=== PATIENT | female | born 1995 | race Caucasian/White ===

== ENCOUNTER → 2016-04-18 | Outpatient (REF) | payer MEDICAID, OTHER ==
[~2016-04-18] MED LIST: TYLE325T5 PO
[2016-04-18 13:32] LABS: MEAN CORPUSCULAR HEMOGLOBIN 29.2 pg (27.0-33.0); MEAN CORPUSCULAR HGB CONC 34.2 g/dl (32.0-36.5); MEAN CORPUSCULAR VOLUME 85.4 fl (80.0-96.0); RED CELL DISTRIBUTION WIDTH 12.2 % (11.5-14.5); WHITE BLOOD COUNT 6.2 K/mm3 (4.0-10.0)
== END ==
LOC: M SFHCPLAZ 10:14
DX: R00.0 Tachycardia, unspecified (principal)

== ENCOUNTER → 2016-06-02 | Outpatient (REF) | payer OTHER | LOC: M SFHCPLAZ 16:13 | DX: R10.31 Right lower quadrant pain (principal); Z53.8 Procedure and treatment not carried out for other reasons ==

== ENCOUNTER → 2016-06-29 | Outpatient (CLI) | payer MEDICAID, OTHER, SELFPAY ==
[2016-06-29 18:26] LABS: CONTROL LINE HCG INT CTR LINE PRESENT
[2016-06-29 18:37] LABS: ALBUMIN/GLOBULIN RATIO 1.25 (1.00-1.93); ALKALINE PHOSPHATASE 63 U/L (45-117); ALT/SGPT 15 U/L (12-78); AMYLASE 39 U/L (25-115); ANION GAP 8 MEQ/L (8-16); AST/SGOT 14 U/L (15-37); BILIRUBIN,TOTAL 0.2 MG/DL (0.2-1.0); BLOOD UREA NITROGEN 14 MG/DL (7-18); CARBON DIOXIDE LEVEL 29 MEQ/L (21-32); CHLORIDE LEVEL 104 MEQ/L (98-107); CREATININE FOR GFR 0.68 MG/DL (0.55-1.02); GLUCOSE, FASTING 105 MG/DL (70-105); POTASSIUM SERUM 4.3 MEQ/L (3.5-5.1); SODIUM LEVEL 141 MEQ/L (136-145); TOTAL PROTEIN 7.2 GM/DL (6.4-8.2)
== END ==
LOC: M LAB 17:10
PROVIDERS: ATTEND Internal Medicine
DX: R10.31 Right lower quadrant pain (principal)

== ENCOUNTER → 2016-06-29 | Outpatient (REF) | payer OTHER | LOC: M SFHCPLAZ 16:33 | DX: R10.31 Right lower quadrant pain (principal); Z53.9 Procedure and treatment not carried out, unspecified reason ==

== ENCOUNTER → 2016-08-08 | Outpatient (CLI) | payer BC, MEDICAID ==
[~2016-08-08] MED LIST changes: +METHACHOLINE KIT (J7674) INH ONE
--- NOTE | 2016-08-08 14:20 | PFTRPT ---
METHACHOLINE CHALLENGE REPORT: ORDERING PROVIDER: KIESHA Lee DATE OF SERVICE: 08/08/16 INTERPRETATION: The study was of excellent technical quality. Under protocol, methacholine was administered. At a dose of 25 mg/ml (188.875 CDUs) of methacholine, a 21% decline in the FEV1 was noted; however, a PC20 of 17.54 does not meet diagnostic criteria. IMPRESSION: Borderline methacholine challenge study. Please correlate clinically. MTDD
== END ==
LOC: M CARPUL 13:21
PROVIDERS: ATTEND Nurse Practitioner Adult Health
DX: R05 Cough (principal)

== ENCOUNTER → 2016-08-29 | Outpatient (CLI) | payer BC, MEDICAID ==
[~2016-08-29] MED LIST changes: -METHACHOLINE KIT (J7674) INH ONE
--- NOTE | 2016-08-29 15:31 | REP ---
Chest x-ray: Two views. History: Cough . Comparison study: June 16, 2014 . Findings: The lungs are well inflated and free of infiltrate. The pleural angles are sharp. The heart size is normal. Pulmonary vasculature is not increased. No significant bony abnormality is seen. Impression: Negative chest x-ray. Signed by Phil Lyles MD 08/29/2016 03:22 P
== END ==
LOC: M RAD 15:06
PROVIDERS: ATTEND Nurse Practitioner Adult Health
DX: R05 Cough (principal)

== ENCOUNTER → 2016-10-12 | Outpatient (REF) | payer MEDICAID, OTHER | LOC: M SFHCPLAZ 13:41 | DX: Z11.4 Encounter for screening for human immunodeficiency virus [HIV] (principal) ==

== ENCOUNTER → 2017-03-15 | Outpatient (REF) | payer OTHER | LOC: M SFHCPLAZ 12:01 | PROVIDERS: ATTEND Student in an Organized Health Care Education/Training Program | DX: R10.84 Generalized abdominal pain (principal) ==

== ENCOUNTER 2017-09-25 13:26 | Emergency (ER) | payer OTHER, MEDICAID ==
[2017-09-25 14:28] LABS: KETONE, URINE AUTO RFX NEGATIVE (NEGATIVE); LEUKOCYTE ESTERASE UR AUTO RFX NEGATIVE (NEGATIVE); NITRITE, URINE AUTO RFX NEGATIVE (NEGATIVE); RBC, URINE AUTO RFX 0 /HPF (0-3); SPECIFIC GRAVITY UR AUTO RFX 1.003 (1.002-1.035); SQUAM EPITHELIAL CELL UR AURFX 1 /HPF (0-6); WBC, URINE AUTO RFX 1 /HPF (0-3)
[2017-09-25 16:45] LABS: BASO % 0.3 % (0.0-1.0); EOS % 0.1 % (0.0-3.0); HEMATOCRIT 39.7 % (36.0-47.0); HEMOGLOBIN 13.7 g/dl (12.0-15.5); IMMATURE GRANULOCYTE % 0.3 % (0-3.0); LYMPH # 2.8 10^3/uL (1.5-6.5); LYMPH % 24.8 % (24.0-44.0); MEAN CORPUSCULAR HEMOGLOBIN 29.3 pg (27.0-33.0); MEAN CORPUSCULAR HGB CONC 34.5 g/dl (32.0-36.5); MEAN CORPUSCULAR VOLUME 84.8 fl (80.0-96.0); MONO # 0.7 10^3/uL (0.0-0.8); MONO % 6.2 % (0.0-5.0); NEUTROPHILS # 7.7 10^3/uL (1.8-7.7); NEUTROPHILS % 68.3 % (36.0-66.0); PLATELET COUNT, AUTOMATED 182 10^3/uL (150-450); RED BLOOD COUNT 4.68 10^6/uL (4.00-5.40); RED CELL DISTRIBUTION WIDTH 12.6 % (11.5-14.5); WHITE BLOOD COUNT 11.2 10^3/uL (4.0-10.0)
[2017-09-25] MEDS: NS 1,000 ML IV (16:45)
[2017-09-25 17:01] LABS: CONTROL LINE UCG INT CTR LINE PRESENT; URINE PREG TEST NEGATIVE (NEGATIVE)
[2017-09-25 17:10] LABS: ALBUMIN 4.1 GM/DL (3.2-5.2); ALBUMIN/GLOBULIN RATIO 1.21 (1.00-1.93); ALKALINE PHOSPHATASE 74 U/L (45-117); ALT/SGPT 20 U/L (12-78); ANION GAP 7 MEQ/L (8-16); AST/SGOT 24 U/L (7-37); BILIRUBIN,TOTAL 0.4 MG/DL (0.2-1.0); BLOOD UREA NITROGEN 6 MG/DL (7-18); CALCIUM LEVEL 8.8 MG/DL (8.5-10.1); CARBON DIOXIDE LEVEL 26 MEQ/L (21-32); CHLORIDE LEVEL 107 MEQ/L (98-107); CREATININE FOR GFR 0.69 MG/DL (0.55-1.30); GLOMERULAR FILTRATION RATE > 60.0 (>60); GLUCOSE, FASTING 82 MG/DL (70-100); POTASSIUM SERUM 4.5 MEQ/L (3.5-5.1); SODIUM LEVEL 140 MEQ/L (136-145); TOTAL PROTEIN 7.5 GM/DL (6.4-8.2)
[2017-09-25] MEDS: ONDANSETRON 4MG/2ML VIAL (J2405) IV (17:13)
[2017-09-25] MEDS: MORPHINE 4 MG/ML 1ML VIAL/SYRINGE (J2270) IV (17:13)
[2017-09-25 17:27] LABS: LIPASE 142 U/L (73-393)
[2017-09-25] MEDS ORDERED: ISOVUE-370 76% 100ML VIAL (Q9967) As Ordered (17:28)
[2017-09-25] MEDS: cefTRIAXone SOD 250 MG VIAL (J0696) IM (18:53)
[2017-09-25] MEDS: AZITHROMYCIN 250 MG TAB PO (18:53)
[2017-09-25 20:28] LABS: CHLAMYDIA DNA AMPLIFICATION NEGATIVE (NEGATIVE); GC DNA AMPLIFICATION NEGATIVE (NEGATIVE)
== END 2017-09-25 20:07 | disposition home or self-care (01) ==
LOC: M ED 13:26
DX: N39.0 Urinary tract infection, site not specified (principal); N83.202 Unspecified ovarian cyst, left side; N89.8 Other specified noninflammatory disorders of vagina; F41.9 Anxiety disorder, unspecified; F33.9 Major depressive disorder, recurrent, unspecified; F90.9 Attention-deficit hyperactivity disorder, unspecified type; Z79.899 Other long term (current) drug therapy; F17.210 Nicotine dependence, cigarettes, uncomplicated; F12.20 Cannabis dependence, uncomplicated
CPT/HCPCS: J2270

== ENCOUNTER → 2017-10-30 | Outpatient (REF) | payer OTHER ==
[2017-10-30 22:45] LABS: CHLAMYDIA DNA AMPLIFICATION NEGATIVE (NEGATIVE); GC DNA AMPLIFICATION NEGATIVE (NEGATIVE)
== END ==
LOC: M LAB REF 17:16
DX: Z11.3 Encounter for screening for infections with a predominantly sexual mode of transmission (principal)

== ENCOUNTER → 2017-10-30 | Outpatient (REF) | payer OTHER | LOC: M SFHCWAGY 15:54 | DX: Z12.4 Encounter for screening for malignant neoplasm of cervix (principal) ==

== ENCOUNTER 2018-08-23 18:22 | Emergency (ER) | payer OTHER ==
[~2018-08-23] VITALS: Ht 162.6 cm; Wt 71.4 kg
[~2018-08-23 18:22] MED LIST changes: +ACET-716 PO; +CONC36TA4; +LEXA1TAB2 PO; +MACR100C43 PO
[2018-08-23 19:30] LABS: BASO % 0.3 % (0.0-1.0); EOS % 0.2 % (0.0-3.0); HEMATOCRIT 42.3 % (36.0-47.0); HEMOGLOBIN 14.2 g/dl (12.0-15.5); LYMPH # 1.8 10^3/uL (1.5-6.5); LYMPH % 27.2 % (24.0-44.0); MEAN CORPUSCULAR HEMOGLOBIN 28.9 pg (27.0-33.0); MEAN CORPUSCULAR HGB CONC 33.6 g/dl (32.0-36.5); MONO # 0.8 10^3/uL (0.0-0.8); MONO % 12.3 % (0.0-5.0); NEUTROPHILS # 3.9 10^3/uL (1.8-7.7); NEUTROPHILS % 59.7 % (36.0-66.0); PLATELET COUNT, AUTOMATED 180 10^3/uL (150-450); RED BLOOD COUNT 4.92 10^6/uL (4.00-5.40); WHITE BLOOD COUNT 6.4 10^3/uL (4.0-10.0)
[2018-08-23 19:49] LABS: BLOOD UREA NITROGEN 8 MG/DL (7-18); CALCIUM LEVEL 9.4 MG/DL (8.5-10.1); CARBON DIOXIDE LEVEL 31 MEQ/L (21-32); CHLORIDE LEVEL 103 MEQ/L (98-107); CREATININE FOR GFR 0.75 MG/DL (0.55-1.30); GLOMERULAR FILTRATION RATE > 60.0 (>60); GLUCOSE, FASTING 87 MG/DL (70-100); POTASSIUM SERUM 4.2 MEQ/L (3.5-5.1); SODIUM LEVEL 137 MEQ/L (136-145)
[2018-08-23 20:09] LABS: APPEARANCE, URINE HAZY (CLEAR); BACTERIA, URINE AUTO 1+ (NEGATIVE); BILIRUBIN, URINE AUTO NEGATIVE (NEGATIVE); BLOOD, URINE BLOOD NEGATIVE (NEGATIVE); COLOR, URINE AMBER (YELLOW); GLUCOSE, URINE (UA) AUTO NEGATIVE (NEGATIVE); KETONE, URINE AUTO TRACE mg/dL (NEGATIVE); LEUKOCYTE ESTERASE, URINE AUTO TRACE (NEGATIVE); MUCUS, URINE LARGE (NEGATIVE); NITRITE, URINE AUTO NEGATIVE (NEGATIVE); PROTEIN, URINE AUTO 1+ mg/dL (NEGATIVE); RBC, URINE AUTO 4 /HPF (0-3); SPECIFIC GRAVITY URINE AUTO 1.026 (1.002-1.035); SQUAMOUS EPITHELIAL CELL UR AU 6 /HPF (0-6); WBC, URINE AUTO 10 /HPF (0-3)
[2018-08-23 20:41] LABS: HIV 1&2 SCREEN CENTAUR NEGATIVE (NEGATIVE)
[2018-08-23] MEDS ORDERED: ACYC400T PO (21:08)
[2018-08-23] MEDS ORDERED: KEFL500C17 PO (21:11)
[2018-08-23 21:15] LABS: CHLAMYDIA DNA AMPLIFICATION NEGATIVE (NEGATIVE); GC DNA AMPLIFICATION NEGATIVE (NEGATIVE)
[2018-08-23 21:37] VITALS: BP 105/66
[2018-08-26 09:34] LABS: HEPATITIS B SURFACE ANTIBODY NEGATIVE (POSITIVE)
[2018-08-26 09:45] LABS: HEPATITIS B SURFACE ANTIGEN NEGATIVE (NEGATIVE)
[2018-08-26 10:12] LABS: HEPATITIS C VIRUS ABY INDEX < 0.0 INDEX (<0.8)
[2018-08-27 00:06] LABS: HSV-1 DNA Negative (Negative); HSV-2 DNA Negative (Negative)
== END 2018-08-23 21:38 | disposition home or self-care (01) ==
LOC: M ED 18:22
DX: A60.04 Herpesviral vulvovaginitis (principal); N39.0 Urinary tract infection, site not specified

== ENCOUNTER → 2019-03-06 | Outpatient (REF) | payer OTHER ==
[~2019-03-06] MED LIST changes: +ACYC400T PO; +KEFL500C17 PO
[2019-03-06 17:20] LABS: HEMATOCRIT 40.8 % (36.0-47.0); HEMOGLOBIN 13.8 g/dl (12.0-15.5); MEAN CORPUSCULAR HEMOGLOBIN 29.5 pg (27.0-33.0); MEAN CORPUSCULAR HGB CONC 33.8 g/dl (32.0-36.5); MEAN CORPUSCULAR VOLUME 87.2 fl (80.0-96.0); PLATELET COUNT, AUTOMATED 208 10^3/uL (150-450); RED BLOOD COUNT 4.68 10^6/uL (4.00-5.40); WHITE BLOOD COUNT 7.5 10^3/uL (4.0-10.0)
[2019-03-06 17:58] LABS: FREE T4 1.05 NG/DL (0.76-1.46); THYROID STIMULATING HORMONE 1.32 uIU/ML (0.358-3.740)
== END ==
LOC: M SFHCPLAZ 15:52
DX: R53.83 Other fatigue (principal)

== ENCOUNTER → 2019-05-20 | Outpatient (REF) | payer OTHER ==
[2019-05-20 13:21] LABS: HCG, SERUM QUALITATIVE NEGATIVE (NEGATIVE)
== END ==
LOC: M LABDRWAD 12:27
PROVIDERS: ATTEND Nurse Practitioner Family
DX: R11.0 Nausea (principal)

== ENCOUNTER → 2019-06-19 | Outpatient (REF) | payer OTHER ==
[2019-06-19 17:16] LABS: CHLAMYDIA DNA AMPLIFICATION NEGATIVE (NEGATIVE); GC DNA AMPLIFICATION NEGATIVE (NEGATIVE)
== END ==
LOC: M LAB REF 15:20
PROVIDERS: ATTEND Physician Assistant
DX: B37.3 Candidiasis of vulva and vagina (principal)

== ENCOUNTER 2019-09-01 20:18 | Emergency (ER) | payer OTHER ==
[~2019-09-01] VITALS: Ht 162.6 cm; Wt 70.8 kg
[2019-09-01 20:18] VITALS: BP 119/77
[2019-09-01] MEDS ORDERED: VALA500T5 (20:29)
[2019-09-01] MEDS ORDERED: ESCI20TA (20:29)
[2019-09-01] MEDS ORDERED: OMEP-221 (20:29)
[2019-09-01] MEDS ORDERED: vitamin D (20:29)
[2019-09-01] MEDS ORDERED: IBUPROFEN 600 MG TAB PO ONE (20:45)
[2019-09-01] MEDS ORDERED: ACETAMINOPHEN 500 MG TAB PO ONE (20:45)
--- NOTE | 2019-09-02 00:48 | REP ---
Clinical: Trauma with pain and swelling Technique: AP, lateral, bilateral oblique and sunrise views left knee . Findings: The osseous structures and joint spaces are intact and normal. There is no evidence for acute fracture or dislocation. No joint effusion is appreciated. Surrounding soft tissues are unremarkable. No subcutaneous emphysema or radiodense foreign body. Impression: Normal examination. No acute fracture or dislocation. Electronically Signed by Harry Stahl MD 09/02/2019 12:39 A
== END 2019-09-01 21:20 | disposition home or self-care (01) ==
LOC: M ED 20:18
DX: S80.212A Abrasion, left knee, initial encounter (principal); W18.39XA Other fall on same level, initial encounter; Y92.830 Public park as the place of occurrence of the external cause; Y93.9 Activity, unspecified

== ENCOUNTER 2020-03-02 12:44 | Emergency (ER) | payer OTHER ==
[~2020-03-02] VITALS: Ht 165.1 cm; Wt 80.7 kg
[~2020-03-02 12:44] MED LIST changes: +ESCI20TA; +OMEP-221; +VALA500T5 PO; +vitamin D
[2020-03-02 12:45] VITALS: BP 119/73
[2020-03-02] MEDS ORDERED: IBUP-1022 PO (13:48)
[2020-03-02] MEDS ORDERED: ROBA750T4 PO (13:48)
== END 2020-03-02 13:53 | disposition home or self-care (01) ==
LOC: M ED 12:44
DX: M62.830 Muscle spasm of back (principal); M54.5 Low back pain; G89.29 Other chronic pain

== ENCOUNTER 2020-03-07 14:10 | Day surgery (SDC) | payer OTHER ==
[~2020-03-07] VITALS: Ht 162.6 cm; Wt 80.4 kg
[~2020-03-07 14:10] MED LIST changes: +IBUP-1022 PO; +ROBA750T4 PO
[2020-03-07 14:40] LABS: BASO % 0.2 % (0.0-1.0); EOS % 0.1 % (0.0-3.0); HEMATOCRIT 42.9 % (36.0-47.0); HEMOGLOBIN 14.2 g/dl (12.0-15.5); LYMPH # 2.3 10^3/uL (1.5-5.0); LYMPH % 18.2 % (24.0-44.0); MEAN CORPUSCULAR HEMOGLOBIN 27.9 pg (27.0-33.0); MEAN CORPUSCULAR HGB CONC 33.1 g/dl (32.0-36.5); MEAN CORPUSCULAR VOLUME 84.3 fl (80.0-96.0); MONO # 0.9 10^3/uL (0.0-0.8); MONO % 6.8 % (0.0-5.0); NEUTROPHILS # 9.2 10^3/uL (1.5-8.5); NEUTROPHILS % 74.3 % (36.0-66.0); PLATELET COUNT, AUTOMATED 246 10^3/uL (150-450); RED BLOOD COUNT 5.09 10^6/uL (4.00-5.40); WHITE BLOOD COUNT 12.4 10^3/uL (4.0-10.0)
[2020-03-07] MEDS ORDERED: BISACODYL 10 MG SUPP PR ONE (15:00)
[2020-03-07 15:05] LABS: ALBUMIN 4.4 GM/DL (3.2-5.2); BILIRUBIN,DIRECT 0.2 MG/DL (0.0-0.2); BILIRUBIN,TOTAL 0.8 MG/DL (0.2-1.0); TOTAL PROTEIN 7.8 GM/DL (6.4-8.2)
[2020-03-07] MEDS ORDERED: ISOVUE-370 76% 100ML VIAL As Ordered ONE (15:06)
[2020-03-07] MEDS ORDERED: NS 1,000 ML IV ONE (15:15)
[2020-03-07] MEDS ORDERED: MORPHINE 4 MG/ML 1ML VIAL/SYRINGE (J2270) IV ONE (15:15)
--- NOTE | 2020-03-07 15:19 | REP ---
INDICATION: constipation COMPARISON: None. TECHNIQUE: Two supine views of the abdomen and pelvis. FINDINGS: Bowel gas pattern is nonspecific and without obstruction or perforation. No organomegaly. No abnormal calcifications. Skeletal structures intact. IMPRESSION: Normal abdominal radiograph. Nonspecific bowel gas pattern. <Electronically signed by Harry Stahl > 03/07/20 [id number]
--- NOTE | 2020-03-07 15:52 | REP ---
INDICATION: abd pain r/o early appy. COMPARISON: 09/25/2017 TECHNIQUE: Axial contrast-enhanced images from the lung bases to the pubic symphysis using 100 cc Isovue 370 intravenous contrast material. Coronal and sagittal reformations obtained. This CT examination was performed using the following dose reduction techniques: Automated exposure control, adjustment of mA and/or kv according to the patient's size, and the use of iterative reconstruction technique. FINDINGS: Right lower quadrant demonstrates mildly distended enhancing appendix measuring 8.5 mm maximal diameter suggesting early acute appendicitis (images [id number]). The enteric system is otherwise unremarkable. No free air or free fluid. No drainable collection or abscess. Liver, spleen, pancreas, gallbladder, bilateral adrenal glands and kidneys are normal. Further evaluation of the pelvis demonstrates normal bladder and age-appropriate uterus/adnexa. No adenopathy. No free air. Abdominal aorta and vasculature appear normal. Musculoskeletal structures are intact and without acute osseous abnormality. IMPRESSION: Mildly enhancing minimally distended appendix measuring 8.5 mm diameter consistent with early acute appendicitis. No evidence for bowel obstruction/perforation and no evidence for drainable collection/abscess. Close clinical observation is recommended. <Electronically signed by Harry Stahl > 03/07/20 [id number]
[2020-03-07] MEDS ORDERED: PIPERACILLIN/TAZOBACTAM SOD 3.375 GM in D5W MINI-BAG PLUS 50 ML IV ONE (16:30)
[2020-03-07] MEDS ORDERED: IBUP1TAB6 PO (16:57)
[2020-03-07] MEDS ORDERED: METH750T2 PO (16:57)
[2020-03-07] MEDS ORDERED: LR 1,000 ML IV SCH (19:25)
[2020-03-07] MEDS ORDERED: ONDANSETRON 4MG/2ML VIAL IV PRN (19:30)
[2020-03-07] MEDS ORDERED: MORPHINE 2 MG/ML 1ML VIAL (J2270) IV PRN (19:30)
[2020-03-07] MEDS ORDERED: KETOROLAC 30 MG/ML 1ML VIAL IV PRN (19:30)
[2020-03-07] MEDS ORDERED: KETOROLAC 30 MG/ML 1ML VIAL As Ordered ONE (19:50)
[2020-03-07] MEDS ORDERED: ONDANSETRON 4MG/2ML VIAL As Ordered ONE ×2 (19:50→21:00)
[2020-03-07] MEDS ORDERED: propofoL 200 MG/20 ML VIAL As Ordered ONE (21:00)
[2020-03-07] MEDS ORDERED: SUGAMMADEX SODIUM 500 MG/5 ML VIAL (BRIDION) As Ordered ONE (21:00)
[2020-03-07] MEDS ORDERED: MIDAZOLAM INJ 2MG/2ML VIAL (J2250 PER 1MG) As Ordered ONE (21:00)
[2020-03-07] MEDS ORDERED: LIDOCAINE 2% 100MG/5ML SDV (FOR ANES.) As Ordered ONE (21:00)
[2020-03-07] MEDS ORDERED: ROCURONIUM BROMIDE 50 MG/5 ML VIAL As Ordered ONE (21:00)
[2020-03-07] MEDS ORDERED: dexameTHASONE 4 MG/ML 1ML VIAL (J1100 PER 1MG) As Ordered ONE (21:00)
[2020-03-07] MEDS ORDERED: METOCLOPRAMIDE INJ 10MG/2ML VIAL (J2765 PER 1) As Ordered ONE (21:00)
[2020-03-07] MEDS ORDERED: fentaNYL 100 MCG/2 ML INJECTION (J3010) As Ordered ONE (21:00)
[2020-03-07] MEDS ORDERED: KETOROLAC 60MG 2ML VIAL As Ordered ONE (21:20)
[2020-03-07] MEDS ORDERED: BUPIVACAINE HCL 0.25% 30ML VIAL As Ordered ONE (21:21)
[2020-03-07] MEDS ORDERED: ACETAMINOPHEN TAB 650MG DOSE (2X325MG) PO PRN (22:30)
[2020-03-07] MEDS ORDERED: IBUPROFEN 600MG TAB PO PRN (22:30)
[2020-03-07 23:13] VITALS: BP 117/80
[2020-03-07 23:30] VITALS: BP 103/64
[2020-03-07] MEDS ORDERED: PIPERACILLIN/TAZOBACTAM SOD 3.375 GM in D5W MINI-BAG PLUS 50 ML IV SCH (23:30)
[2020-03-07] MEDS: NORCO, ANEXSIA 5/325MG TABLET (HYDROcodone/ACETAMINOPHEN) PO PRN (23:38)
[2020-03-08] VITALS (8 sets, daily range): BP systolic 84–109; BP diastolic 51–59
[2020-03-08] MEDS ORDERED: PIPERACILLIN/TAZOBACTAM SOD 3.375 GM in D5W MINI-BAG PLUS 50 ML IV SCH ×2
[2020-03-08] MEDS: NORCO, ANEXSIA 5/325MG TABLET (HYDROcodone/ACETAMINOPHEN) PO PRN (12:57)
[2020-03-08] MEDS ORDERED: HYDR-3715 PO (15:16)
--- NOTE | 2020-03-09 10:47 | RO ---
DATE OF OPERATION: 03/07/2020 PREOPERATIVE DIAGNOSIS: Acute appendicitis. POSTOPERATIVE DIAGNOSIS: Acute appendicitis. PROCEDURE PERFORMED: Laparoscopic appendectomy. PROCEDURE: SURGEON: Teddy Da Silva MD ANESTHESIA: General. 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 She described a sensation of fullness or bloating. She had some nausea. The pain became more localized to the right lower part of the abdomen. In the emergency department, she was found to have a mildly elevated white blood cell count and a CT scan revealed a prominent appendix that was mildly enlarged and appeared slightly thickened on CT scan. She had some tenderness over the area of her appendix. She is now for a laparoscopic appendectomy. OPERATIVE PROCEDURE: The patient was brought to the operating room and placed on the table in a supine position. She was placed under general endotracheal anesthesia. The patient's abdomen was prepped and draped in a sterile fashion. 1/4% Marcaine was infiltrated at each of the trocar sites as needed. A short transverse supraumbilical incision was made. The incision was deepened to the fascia. A Veress needle was inserted and after a positive hanging drop test, a longitudinal midline fascial incision was made and 11 mm port was placed. The laparoscope was placed. Initial examination was showed a normal appearing liver and gallbladder. Portions of the stomach and small and large bowel were seen and appeared normal. There was a band of omentum noted adherent into the right lower quadrant anteriorly. The formed a band across this portion of the abdomen. The patient was rolled slightly to the left. A slight Trendelenburg position was assumed. Two 5 mm trocars were placed in the left lower quadrant. Graspers were inserted. The terminal ileum was rolled away from the cecum and the appendix was identified. The appendix was quite erythematous and indurated. The appendix was grasped by the mesoappendix and elevated. Hook cautery was used to dissect through the mesoappendix being certain to thoroughly cauterize the vascular bundle. When the base of the appendix was exposed, the base was ligated with a 0 Vicryl Endoloop. A second Endoloop was placed approximately a cm further out on the appendix and the appendix was then transected. The exposed mucosa of the appendiceal stump was cauterized. The appendix was placed in an Endopouch. The pericecal area was gently irrigated and inspected and there was no evidence of any bleeding. I elected to divide the band of omentum which was adherent into the right lower quadrant as this appeared to present as a possible point for an internal hernia. The band of omentum was transected at its insertion on the anterior abdominal wall using the cautery. Hemostasis was ensured. The patient was returned to a flat position. The abdomen was deflated and the trocars were all removed. The appendix was recovered through the supraumbilical site. The fascia was closed with interrupted simple sutures of 2-0 Vicryl. The skin incisions were all closed with buried 4-0 Vicryl and Steri-Strips. Light dressings were applied. the patient was awakened in the operating room, extubated and moved to the recovery room in stable condition. LENNIE
[2021-03-07] MEDS ORDERED: PIPERACILLIN/TAZOBACTAM SOD 3.375 GM in D5W MINI-BAG PLUS 50 ML IV SCH (23:00)
== END 2020-03-08 16:15 | disposition home or self-care (01) ==
LOC: M ED 14:10 → M SDC 14:11 → M PED 23:00 → M SDC 03-08 16:15
PROVIDERS: ATTEND Surgery
DX: K35.80 Unspecified acute appendicitis (principal); A60.09 Herpesviral infection of other urogenital tract; J45.990 Exercise induced bronchospasm; F17.210 Nicotine dependence, cigarettes, uncomplicated; R51.9 Headache, unspecified; F41.9 Anxiety disorder, unspecified; F32.9 Major depressive disorder, single episode, unspecified; F90.9 Attention-deficit hyperactivity disorder, unspecified type
CPT/HCPCS: 44970; 74018; 80047; 80076; 83690; 84702; 85025; 88304; 96360; 96365; 96374; 96375; 96376; 99284; J1100; J1885; J2250; J2270; J2405; J2543; J2765; J3010; Q9967; U0002

== ENCOUNTER → 2020-03-16 | Outpatient (REF) | payer OTHER ==
[~2020-03-16] MED LIST changes: +HYDR-3715 PO; +IBUP1TAB6 PO; +METH750T2 PO
== END ==
LOC: M SFHCPLAZ 16:52
PROVIDERS: ATTEND Hospitalist
DX: B00.9 Herpesviral infection, unspecified (principal)

== ENCOUNTER → 2020-05-09 | Outpatient (REF) | payer OTHER ==
[~2020-05-09] MED LIST changes: -ESCI20TA; +ESCI20TA16; +METH-1165 PO; -METH750T2 PO
[2020-05-09 18:05] LABS: APPEARANCE, URINE HAZY (CLEAR); BACTERIA, URINE AUTO 2+ (NEGATIVE); BILIRUBIN, URINE AUTO 1+ (NEGATIVE); BLOOD, URINE BLOOD 1+ (NEGATIVE); COLOR, URINE YELLOW (YELLOW); GLUCOSE, URINE (UA) AUTO NEGATIVE (NEGATIVE); KETONE, URINE AUTO TRACE mg/dL (NEGATIVE); LEUKOCYTE ESTERASE, URINE AUTO NEGATIVE (NEGATIVE); MUCUS, URINE LARGE (NEGATIVE); NITRITE, URINE AUTO NEGATIVE (NEGATIVE); PROTEIN, URINE AUTO 1+ mg/dL (NEGATIVE); RBC, URINE AUTO 2 /HPF (0-3); SPECIFIC GRAVITY URINE AUTO 1.043 (1.002-1.035); SQUAMOUS EPITHELIAL CELL UR AU 11 /HPF (0-6); UROBILINOGEN, URINE AUTO 0.2 mg/dL (0.0-2.0); WBC, URINE AUTO 3 /HPF (0-3)
== END ==
LOC: M LAB REF 17:24
PROVIDERS: ATTEND Physician Assistant Medical
DX: R10.9 Unspecified abdominal pain (principal)

== ENCOUNTER → 2020-05-28 | Outpatient (CLI) | payer OTHER ==
--- NOTE | 2020-05-28 15:11 | REPPI ---
INDICATION: M54.42 LUMBAGO WITH SCIATICA LEFT SIDE. COMPARISON: None. TECHNIQUE: Three AP and lateral views thoracic spine. FINDINGS: Vertebral bodies normal in height. There is no fracture or dislocation. There is normal alignment and thoracic kyphosis. The disc spaces are normal in thickness. The posterior elements are intact. IMPRESSION: Negative thoracic spine series. <Electronically signed by Nilesh Oneill > 05/28/20 [id number]
--- NOTE | 2020-05-28 15:12 | REPPI ---
INDICATION: M54.42 LUMBAGO WITH SCIATICA LEFT SIDE. COMPARISON: 01/12/2016. TECHNIQUE: Five views lumbosacral spine. FINDINGS: There is no fracture or malalignment. There is normal lumbar lordosis. Disc spaces are well preserved. Posterior elements are intact. IMPRESSION: Negative lumbosacral spine series. No change since prior study. <Electronically signed by Nilesh Oneill > 05/28/20 [id number]
== END ==
LOC: M PLAIMG 13:07
PROVIDERS: ATTEND Hospitalist
DX: M54.42 Lumbago with sciatica, left side (principal)

== ENCOUNTER → 2020-05-28 | Outpatient (REF) | payer OTHER ==
[2020-05-28 15:13] LABS: HEMATOCRIT 40.2 % (36.0-47.0); HEMOGLOBIN 13.1 g/dl (12.0-15.5); MEAN CORPUSCULAR HEMOGLOBIN 28.4 pg (27.0-33.0); MEAN CORPUSCULAR HGB CONC 32.6 g/dl (32.0-36.5); PLATELET COUNT, AUTOMATED 227 10^3/uL (150-450); RED BLOOD COUNT 4.62 10^6/uL (4.00-5.40); WHITE BLOOD COUNT 7.6 10^3/uL (4.0-10.0)
[2020-05-28 15:41] LABS: ERYTHROCYTE SEDIMENTATION RATE 4 mm/hr (0-20)
[2020-05-28 15:43] LABS: ALBUMIN 4.7 GM/DL (3.2-5.2); ALT/SGPT 19 U/L (12-78); BILIRUBIN,TOTAL 0.3 MG/DL (0.2-1.0); BLOOD UREA NITROGEN 15 MG/DL (7-18); CALCIUM LEVEL 9.4 MG/DL (8.5-10.1); CARBON DIOXIDE LEVEL 31 MEQ/L (21-32); CHLORIDE LEVEL 103 MEQ/L (98-107); CREATININE FOR GFR 0.76 MG/DL (0.55-1.30); GLOMERULAR FILTRATION RATE > 60.0 (>60); GLUCOSE, FASTING 91 MG/DL (70-100); POTASSIUM SERUM 4.6 MEQ/L (3.5-5.1); SODIUM LEVEL 138 MEQ/L (136-145); TOTAL PROTEIN 7.5 GM/DL (6.4-8.2)
== END ==
LOC: M SFHCPLAZ 13:06
PROVIDERS: ATTEND Family Medicine
DX: M54.42 Lumbago with sciatica, left side (principal); R53.83 Other fatigue

== ENCOUNTER → 2020-12-23 | Outpatient (REF) | payer OTHER ==
[~2020-12-23] MED LIST changes: +ACYC1TAB PO; -ACYC400T PO
== END ==
LOC: M WUC 19:38
PROVIDERS: ATTEND Physician Assistant
DX: U07.1 COVID-19 (principal)

== ENCOUNTER → 2021-08-26 | Outpatient (REF) | payer OTHER ==
[~2021-08-26] MED LIST changes: -OMEP-221; +OMEP40CA5
[2021-08-26 16:32] LABS: URINE PREG TEST NEGATIVE (NEGATIVE)
[2021-08-26 16:55] LABS: BASO % 0.4 % (0.0-1.0); EOS % 0.7 % (0.0-3.0); HEMATOCRIT 38.7 % (36.0-47.0); HEMOGLOBIN 12.9 g/dl (12.0-15.5); LYMPH # 2.4 10^3/uL (1.5-5.0); LYMPH % 41.8 % (24.0-44.0); MEAN CORPUSCULAR HEMOGLOBIN 28.2 pg (27.0-33.0); MEAN CORPUSCULAR HGB CONC 33.3 g/dl (32.0-36.5); MEAN CORPUSCULAR VOLUME 84.5 fl (80.0-96.0); MONO # 0.6 10^3/uL (0.0-0.8); MONO % 10.1 % (2.0-8.0); NEUTROPHILS # 2.6 10^3/uL (1.5-8.5); NEUTROPHILS % 46.6 % (36.0-66.0); PLATELET COUNT, AUTOMATED 211 10^3/uL (150-450); RED BLOOD COUNT 4.58 10^6/uL (4.00-5.40); WHITE BLOOD COUNT 5.6 10^3/uL (4.0-10.0)
[2021-08-26 17:16] LABS: ERYTHROCYTE SEDIMENTATION RATE 6 mm/hr (0-20)
[2021-08-26 17:23] LABS: ALBUMIN 4.1 GM/DL (3.2-5.2); ALT/SGPT 21 U/L (12-78); BILIRUBIN,TOTAL 0.6 MG/DL (0.2-1.0); BLOOD UREA NITROGEN 12 MG/DL (7-18); C REACTIVE PROTEIN QUANTITATIV 0.45 MG/DL (0.00-0.30); CALCIUM LEVEL 9.1 MG/DL (8.5-10.1); CARBON DIOXIDE LEVEL 26 MEQ/L (21-32); CHLORIDE LEVEL 109 MEQ/L (98-107); CREATININE FOR GFR 0.75 MG/DL (0.55-1.30); GLOMERULAR FILTRATION RATE > 60.0 (>60); GLUCOSE, FASTING 100 MG/DL (70-100); RHEUMATOID FACTOR QUANT < 10.0 IU/ML (<15.0); SODIUM LEVEL 139 MEQ/L (136-145); THYROID STIMULATING HORMONE 0.741 uIU/ML (0.358-3.740); TOTAL PROTEIN 7.3 GM/DL (6.4-8.2)
[2021-08-29 16:10] LABS: ANTINUCLEAR ANTIBODIES DIRECT Negative (Negative)
== END ==
LOC: M SFHCADAM 14:58
PROVIDERS: ATTEND Family Medicine
DX: R11.0 Nausea (principal); F41.8 Other specified anxiety disorders; M25.50 Pain in unspecified joint

== ENCOUNTER 2021-10-02 01:19 | Emergency (ER) | payer OTHER ==
[~2021-10-02] VITALS: Ht 162.6 cm; Wt 85.6 kg
[2021-10-02] MEDS ORDERED: KETOROLAC 30 MG/ML 1ML VIAL IM ONE (08:30)
[2021-10-02 08:44] VITALS: BP 102/60
[2021-10-04] MEDS ORDERED: TRAZ-252 (15:34)
[2021-10-04] MEDS ORDERED: GABA-283 (15:34)
[2021-10-04] MEDS ORDERED: FOLI400T13 PO (15:34)
[2021-10-04] MEDS ORDERED: PROAAER10 INH (15:34)
[2021-10-04] MEDS ORDERED: TIZA2TA (15:34)
[2021-10-04] MEDS ORDERED: PANT40TA29 (15:34)
[2021-10-04] MEDS ORDERED: VENL37.598 PO (15:34)
== END 2021-10-02 09:27 | disposition home or self-care (01) ==
LOC: M ED 01:19
DX: B34.8 Other viral infections of unspecified site (principal); R51.9 Headache, unspecified; M79.10 Myalgia, unspecified site; B02.9 Zoster without complications; Z79.899 Other long term (current) drug therapy
CPT/HCPCS: 87486; 87581; 87633; 87798; 96372; 99283; J1885

== ENCOUNTER → 2021-10-05 | Outpatient (CLI) | payer OTHER ==
[~2021-10-05] MED LIST changes: +FOLI400T13 PO; +GABA-283; +PANT40TA29; +PROAAER10 INH; +TIZA2TA; +TRAZ-252; +VENL37.598 PO
== END ==
LOC: M LABSMTC 10:51
PROVIDERS: ATTEND Anesthesiology
DX: Z01.818 Encounter for other preprocedural examination (principal); Z11.52 Encounter for screening for COVID-19

== ENCOUNTER 2021-10-10 09:43 | Day surgery (SDC) | payer OTHER ==
[~2021-10-10] VITALS: Ht 165.1 cm; Wt 82.1 kg
[~2021-10-10 09:43] MED LIST changes: +NS 1,000 ML IV ONE; +propofoL 500 MG/50 ML VIAL As Ordered ONE
[2021-10-10] MEDS ORDERED: fentaNYL 100 MCG/2 ML INJECTION As Ordered ONE (11:23)
[2021-10-10 12:15] VITALS: BP 119/74
== END 2021-10-10 12:27 | disposition home or self-care (01) ==
LOC: M OPP 09:43
PROVIDERS: ATTEND Internal Medicine Gastroenterology
DX: R19.4 Change in bowel habit (principal); K64.8 Other hemorrhoids; K29.70 Gastritis, unspecified, without bleeding; R13.10 Dysphagia, unspecified; R10.13 Epigastric pain; R11.0 Nausea; Z79.51 Long term (current) use of inhaled steroids; Z79.891 Long term (current) use of opiate analgesic; Z79.899 Other long term (current) drug therapy
CPT/HCPCS: 43239; 45380; 88305; J3010

== ENCOUNTER 2021-12-07 20:10 | Emergency (ER) | payer OTHER ==
[~2021-12-07] VITALS: Ht 165.1 cm; Wt 86.7 kg
[~2021-12-07 20:10] MED LIST changes: -NS 1,000 ML IV ONE; -propofoL 500 MG/50 ML VIAL As Ordered ONE
[2021-12-07 20:11] VITALS: BP 120/74
[2021-12-07] MEDS ORDERED: NAPROXEN 250 MG TAB PO ONE (22:00)
[2021-12-07] MEDS ORDERED: LIDOCAINE 4% CREAM 5GM (LMX4) TOP ONE (22:00)
[2021-12-07] MEDS ORDERED: ANEC4CRE3 TOP (22:11)
[2021-12-07] MEDS ORDERED: NAPR-837 PO (22:11)
== END 2021-12-07 22:19 | disposition home or self-care (01) ==
LOC: M ED 20:10
DX: S69.91XA Unspecified injury of right wrist, hand and finger(s), initial encounter (principal); X58.XXXA Exposure to other specified factors, initial encounter; Y92.89 Other specified places as the place of occurrence of the external cause; Y99.0 Civilian activity done for income or pay

== ENCOUNTER → 2021-12-29 | Outpatient (CLI) | payer OTHER ==
[~2021-12-29] MED LIST changes: +ANEC4CRE3 TOP; +NAPR-837 PO
== END ==
LOC: M WHC 10:08
PROVIDERS: ATTEND Internal Medicine Gastroenterology
DX: R11.2 Nausea with vomiting, unspecified (principal)

== ENCOUNTER → 2022-06-07 | Outpatient (REF) | payer OTHER ==
[2022-06-07 16:44] LABS: C REACTIVE PROTEIN QUANTITATIV < 0.40 MG/DL (<1.0); RHEUMATOID FACTOR QUANT < 3.5 IU/ML (<14)
== END ==
LOC: M SFHCADAM 10:52
PROVIDERS: ATTEND Family Medicine
DX: M79.641 Pain in right hand (principal); M79.642 Pain in left hand

== ENCOUNTER → 2022-06-07 | Outpatient (CLI) | payer OTHER | LOC: M ADAMS 10:55 | PROVIDERS: ATTEND Family Medicine | DX: M79.641 Pain in right hand (principal); M79.642 Pain in left hand ==

== ENCOUNTER → 2023-04-18 | Outpatient (REF) | payer OTHER ==
[~2023-04-18] MED LIST changes: -GABA-283; +GABA-284
[2023-04-18 12:49] LABS: C REACTIVE PROTEIN QUANTITATIV < 0.40 MG/DL (<1.0)
[2023-04-18 12:51] LABS: RHEUMATOID FACTOR QUANT < 3.5 IU/ML (<14)
== END ==
LOC: M SFHCADAM 10:45
PROVIDERS: ATTEND Family Medicine
DX: M25.50 Pain in unspecified joint (principal)

== ENCOUNTER → 2023-05-15 | Outpatient (REF) | payer OTHER ==
[2023-05-15 16:12] LABS: BASO % 0.3 % (0.0-1.0); EOS % 0.3 % (0.0-3.0); HEMATOCRIT 40.1 % (36.0-47.0); HEMOGLOBIN 13.5 g/dl (12.0-15.5); LYMPH # 2.2 10^3/uL (1.5-5.0); LYMPH % 30.9 % (24.0-44.0); MEAN CORPUSCULAR HEMOGLOBIN 28.2 pg (27.0-33.0); MEAN CORPUSCULAR HGB CONC 33.7 g/dl (32.0-36.5); MEAN CORPUSCULAR VOLUME 83.9 fl (80.0-96.0); MONO # 0.6 10^3/uL (0.0-0.8); NEUTROPHILS # 4.2 10^3/uL (1.5-8.5); NEUTROPHILS % 60.4 % (36.0-66.0); PLATELET COUNT, AUTOMATED 231 10^3/uL (150-450); RED BLOOD COUNT 4.78 10^6/uL (4.00-5.40)
[2023-05-15 16:42] LABS: URIC ACID 5.5 MG/DL (3.1-7.8)
[2023-05-15 16:45] LABS: ALKALINE PHOSPHATASE 69 U/L (46-116); ALT/SGPT 14 U/L (7.0-40); AST/SGOT 11 U/L (<34); BILIRUBIN,TOTAL 0.4 MG/DL (0.3-1.2); BLOOD UREA NITROGEN 12 MG/DL (9-23); CALCIUM LEVEL 9.5 MG/DL (8.5-10.1); CARBON DIOXIDE LEVEL 29 MMOL/L (20-31); CHLORIDE LEVEL 104 MMOL/L (98-107); CREATININE FOR GFR 0.69 MG/DL (0.55-1.30); GLOMERULAR FILTRATION RATE > 60.0 (>60); GLUCOSE, FASTING 107 MG/DL (60-100); POTASSIUM SERUM 4.4 MMOL/L (3.5-5.1); SODIUM LEVEL 136 MMOL/L (136-145); TOTAL PROTEIN 7.4 G/DL (5.7-8.2)
[2023-05-15 16:47] LABS: THYROID STIMULATING HORMONE 0.654 uIU/ML (0.55-4.78)
[2023-05-17 23:07] LABS: ANA (HEP2) Negative (.)
== END ==
LOC: M SFHCADAM 15:13
PROVIDERS: ATTEND Family Medicine
DX: F41.8 Other specified anxiety disorders (principal); M79.641 Pain in right hand; M79.642 Pain in left hand

== ENCOUNTER → 2023-05-16 | Outpatient (CLI) | payer OTHER | LOC: M SOG 07:57 | PROVIDERS: ATTEND Orthopaedic Surgery | DX: M25.511 Pain in right shoulder (principal) ==

== ENCOUNTER → 2023-05-28 | Outpatient (CLI) | payer OTHER | LOC: M SOG 08:05 | PROVIDERS: ATTEND Orthopaedic Surgery | DX: M25.511 Pain in right shoulder (principal) ==

== ENCOUNTER → 2023-06-05 | Outpatient (CLI) | payer OTHER | LOC: M SOG 07:48 | PROVIDERS: ATTEND Orthopaedic Surgery | DX: M25.511 Pain in right shoulder (principal) ==

== ENCOUNTER → 2023-12-10 | Outpatient (REF) | payer OTHER ==
[2023-12-10 18:51] LABS: BASO % 0.3 % (0.0-1.0); EOS % 0.3 % (0.0-3.0); HEMATOCRIT 39.5 % (36.0-47.0); HEMOGLOBIN 12.8 g/dl (12.0-15.5); LYMPH # 2.4 10^3/uL (1.5-5.0); MEAN CORPUSCULAR HEMOGLOBIN 27.9 pg (27.0-33.0); MEAN CORPUSCULAR HGB CONC 32.4 g/dl (32.0-36.5); MEAN CORPUSCULAR VOLUME 86.2 fl (80.0-96.0); MONO # 0.6 10^3/uL (0.0-0.8); MONO % 7.1 % (2.0-8.0); NEUTROPHILS # 4.8 10^3/uL (1.5-8.5); PLATELET COUNT, AUTOMATED 245 10^3/uL (150-450); RED BLOOD COUNT 4.58 10^6/uL (4.00-5.40); WHITE BLOOD COUNT 7.8 10^3/uL (4.0-10.0)
== END ==
LOC: M SFHCADAM 12:11
PROVIDERS: ATTEND Family Medicine
DX: G25.81 Restless legs syndrome (principal); N92.1 Excessive and frequent menstruation with irregular cycle

== ENCOUNTER → 2024-01-02 | Outpatient (REF) | payer OTHER | LOC: M SFHCADAM 08:36 | PROVIDERS: ATTEND Family Medicine | DX: R09.81 Nasal congestion (principal) ==

== ENCOUNTER → 2024-02-06 | Outpatient (REF) | payer OTHER | LOC: M SFHCADAM 11:53 | PROVIDERS: ATTEND Family Medicine | DX: Z34.91 Encounter for supervision of normal pregnancy, unspecified, first trimester (principal); Z53.9 Procedure and treatment not carried out, unspecified reason ==

== ENCOUNTER → 2024-02-26 | Outpatient (REF) | payer OTHER | LOC: M PLALAB 10:19 | PROVIDERS: ATTEND Advanced Practice Midwife | DX: Z34.81 Encounter for supervision of other normal pregnancy, first trimester (principal) ==

== ENCOUNTER → 2024-03-04 | Outpatient (CLI) | payer OTHER ==
[2024-03-04 14:23] LABS: HEMATOCRIT 35.3 % (36.0-47.0); HEMOGLOBIN 11.8 g/dl (12.0-15.5); MEAN CORPUSCULAR HEMOGLOBIN 28.9 pg (27.0-33.0); MEAN CORPUSCULAR HGB CONC 33.4 g/dl (32.0-36.5); MEAN CORPUSCULAR VOLUME 86.5 fl (80.0-96.0); PLATELET COUNT, AUTOMATED 213 10^3/uL (150-450); RED BLOOD COUNT 4.08 10^6/uL (4.00-5.40); WHITE BLOOD COUNT 8.2 10^3/uL (4.0-10.0)
[2024-03-04 15:28] LABS: HIV 1&2 SCREEN NEGATIVE (NEGATIVE)
[2024-03-04 15:37] LABS: GC DNA AMPLIFICATION NEGATIVE (NEGATIVE); HEPATITIS C VIRUS ABY INDEX < 0.02 INDEX (<0.8)
== END ==
LOC: M PLALAB 11:08
PROVIDERS: ATTEND Advanced Practice Midwife
DX: Z34.81 Encounter for supervision of other normal pregnancy, first trimester (principal)

== ENCOUNTER → 2024-03-28 | Outpatient (REF) | payer OTHER | LOC: M PLALAB 08:32 | PROVIDERS: ATTEND Nurse Practitioner Family | DX: Z34.02 Encounter for supervision of normal first pregnancy, second trimester (principal) ==

== ENCOUNTER → 2024-04-29 | Outpatient (CLI) | payer OTHER | LOC: M PLALAB 11:00 | PROVIDERS: ATTEND Nurse Practitioner Family | DX: Z34.02 Encounter for supervision of normal first pregnancy, second trimester (principal) ==

== ENCOUNTER → 2024-05-23 | Outpatient (CLI) | payer OTHER | LOC: M WHC 08:19 | PROVIDERS: ATTEND Nurse Practitioner Family | DX: Z34.02 Encounter for supervision of normal first pregnancy, second trimester (principal) ==

== ENCOUNTER → 2024-06-23 | Outpatient (CLI) | payer OTHER ==
[2024-06-23 16:23] LABS: HEMATOCRIT 34.2 % (36.0-47.0); HEMOGLOBIN 11.4 g/dl (12.0-15.5); MEAN CORPUSCULAR HEMOGLOBIN 28.8 pg (27.0-33.0); MEAN CORPUSCULAR HGB CONC 33.3 g/dl (32.0-36.5); MEAN CORPUSCULAR VOLUME 86.4 fl (80.0-96.0); PLATELET COUNT, AUTOMATED 214 10^3/uL (150-450); RED BLOOD COUNT 3.96 10^6/uL (4.00-5.40); WHITE BLOOD COUNT 10.4 10^3/uL (4.0-10.0)
[2024-06-23 16:28] LABS: GLUCOSE CHALLENGE TEST 1 HOUR 103 MG/DL (LESS THAN 140)
[2024-06-23 17:04] LABS: HIV 1&2 SCREEN NEGATIVE (NEGATIVE)
[2024-06-23 17:11] LABS: HEPATITIS C VIRUS ABY INDEX 0.05 INDEX (<0.8)
[2024-06-23 17:57] LABS: GC DNA AMPLIFICATION NEGATIVE (NEGATIVE)
== END ==
LOC: M PLALAB 11:43
PROVIDERS: ATTEND Obstetrics & Gynecology
DX: Z34.02 Encounter for supervision of normal first pregnancy, second trimester (principal)

== ENCOUNTER 2024-07-11 19:06 | Emergency (ER) | payer MEDICAID, OTHER ==
[~2024-07-11] VITALS: Ht 165.1 cm; Wt 98.6 kg
[2024-07-11 19:11] VITALS: BP 134/84; TEMP 97.4; O2SAT 100
[2024-07-11] MEDS ORDERED: PANT40TA29 PO (19:16)
[2024-07-11] MEDS ORDERED: FLUO-290 PO (19:16)
== END 2024-07-11 21:50 | disposition left against medical advice (07) ==
LOC: M ED 19:06
DX: Z53.21 Procedure and treatment not carried out due to patient leaving prior to being seen by health care provider (principal)

== ENCOUNTER → 2024-08-28 | Outpatient (REF) | payer OTHER ==
[~2024-08-28] MED LIST changes: +ACYC-438 PO; -ACYC1TAB PO; +COLA100C5 PO; +FLUO-290 PO; +IBUP80TA PO; +OXYC1TAB23 PO; +PANT40TA29 PO
== END ==
LOC: M PLALAB 11:09
PROVIDERS: ATTEND Advanced Practice Midwife
DX: Z34.03 Encounter for supervision of normal first pregnancy, third trimester (principal)

== ENCOUNTER → 2025-04-03 | Outpatient (CLI) | payer OTHER ==
[~2025-04-03] MED LIST changes: -IBUP-1022 PO; -IBUP1TAB6 PO; +IBUP600T42 PO; +SFHIBU600 PO
[2025-04-03 16:57] LABS: PLATELET COUNT, AUTOMATED 243 10^3/uL (150-450)
[2025-04-03 17:02] LABS: LDH LACTATE DEHYDROGENASE 162 U/L (120-246)
[2025-04-03 17:03] LABS: ALT/SGPT 27 U/L (7.0-40); AST/SGOT 20 U/L (<34); CREATININE FOR GFR 0.59 MG/DL (0.55-1.30); GLOMERULAR FILTRATION RATE > 90.0 (>60)
[2025-04-03 17:14] LABS: TOTAL PROTEIN,RANDOM URINE 14.1 MG/DL (0.0-14.0)
[2025-04-03 17:35] LABS: HIV 1&2 SCREEN NEGATIVE (NEGATIVE)
[2025-04-03 17:43] LABS: HEPATITIS C VIRUS ABY INDEX 0.05 INDEX (<0.8)
[2025-04-03 19:55] LABS: Trichomonas vaginalis (AMP) NOT DETECTED (NEGATIVE)
[2025-04-03 20:18] LABS: GC DNA AMPLIFICATION NEGATIVE (NEGATIVE)
== END ==
LOC: M PLALAB 15:33
PROVIDERS: ATTEND Advanced Practice Midwife
DX: O34.211 Maternal care for low transverse scar from previous cesarean delivery (principal)